=== PATIENT | female | born 1945 | race Caucasian/White ===

== ENCOUNTER → 2019-08-01 09:29 | Outpatient (BNVA) | payer MEDICARE, OTHER, SELFPAY | PROVIDERS: Family Provider Nurse Practitioner Family; PCP Nurse Practitioner Family; Visit Provider Urology | DX: C67.4 Malignant neoplasm of posterior wall of bladder (principal); N30.80 Other cystitis without hematuria | CPT/HCPCS: 81001 ==

== ENCOUNTER 2019-08-16 14:34 | Observation (INO) | payer MEDICARE, OTHER, SELFPAY ==
[2019-08-14 12:03] VITALS: BMI 32.9
--- NOTE | 2019-08-14 12:23 | ANES.PREANES ---
Pre-Anesthetic Assessment Pre-Anesthetic Assessment: Height/Weight: Height 1.6 m Weight 84.368 kg Preop Diagnosis: Recurrent bladder tumor Proposed Procedure: Operation Date: 08/16/19 13:00 Proposed Procedures p Transurethral Resection Bladder Tumor 00389 C67.4(Not Applicable) - Amauri Turcios MD s Cystoscopy(Not Applicable) - Amauri Turcios MD CV/HEM: CV/HEM: HTN Comments: rx'd 20y 2 blocks/FOS angina/SINHA : Comments: TCCA Neuropsych: Neuropsych: ANDERSON Anesthetic Plan: ASA status: II Anesthesia: General PFSH Anesthesia PFSH: Medical History (Updated 08/03/19 @ 15:32 by Henrietta Mcgrath LPN, RT) Cancer of posterior wall of urinary bladder (Acute) Cystitis cystica (Chronic) Surgical History Status post surgical removal and fulguration of bladder neoplasm (Acute) Status post surgical removal of malignant neoplasm of skin (Acute) Social History Smoking and tobacco status: never smoked Alcohol intake: never Marital status: Current occupational status: retired Current gender identity: Female Data Anesthesia Cardiac Studies: No Data to Display
[2019-08-16] VITALS (17 sets, daily range): BP systolic 107–176; BP diastolic 59–84; PULSE 59–92; RESP 14–20; TEMP 36.5–37; O2SAT 86–98
[2019-08-16] MEDS: sodium chloride 0.9% 1,000 ML 30 ML IV (11:30)
--- NOTE | 2019-08-16 13:24 | PM.HPUD ---
H&P update H&P Update: DATE OF SURGERY/PROCEDURE: 08/16/19 DATE H&P PERFORMED: 08/02/19 H&P UPDATE INFORMATION: H&P completed within last 30 days CHANGES TO PREVIOUS DOCUMENTATION: None PREOP DIAGNOSIS: Suspicious bladder lesion and patient with history of TCCA PLANNED PROCEDURE: Operation Date: 08/16/19 13:00 Proposed Procedures p Transurethral Resection Bladder Tumor 18517 C67.4(Not Applicable) - Amauri Turcios MD s Cystoscopy(Not Applicable) - Amauri Turcios MD Conscious Sedation: Patient reassessed prior to sedation, with no change noted: Yes PHYSICAL EXAM: oriented x 3 and clear to auscultation bilaterally (No labored respiration.) OTHER PERTINENT EXAM FINDINGS: No acute distress Full H&P Medications/Allergies: Current Medications: Current Medications Generic Name Dose Route Start Last Admin Trade Name Freq PRN Reason Stop Dose Admin Sodium Chloride 1,000 mls @ 30 ml s/hr 08/16/19 11:15 08/16/19 11:30 Sodium Chloride 0.9% IV 08/17/19 11:14 30 mls/hr .Q24H AZUL Administration Perinent History: Medical/Surgical History: Medical History (Updated 08/01/19 @ 11:08 by Amauri Turcios MD) Cancer of posterior wall of urinary bladder (Acute) Cystitis cystica (Chronic) Family History: Family History Father , OF LUNG CANCER No problems noted. Mother , AT AGE 68-OVARIAN CANCER No problems noted. Sister , at age 59-breast cancer No problems noted. Social History: Social History Smoking and tobacco status: never smoked Alcohol intake: never Marital status: Current occupational status: retired Current gender identity: Female
[2019-08-16] MEDS: levofloxacin-dextrose 5 % 500 MG/100 ML PREMIX 100 MG IV (13:35)
--- NOTE | 2019-08-16 14:26 | P.OP_ITS ---
Operative Report Date of procedure: 08/16/19 Pre-op Diagnosis: Suspicious bladder lesion and patient with history of TCCA Post-op Findings: Papillary recurrence bladder cancer right posterior lateral floor Procedure Done: Cystoscopy, transurethral resection of bladder tumor medium Specimens removed/disposition: None Pathology: Bladder tumor Surgeon: Amauri Turcios Estimated blood loss: Minimal Urine output: Not measured Complications: None Findings: Area of papillary recurrence extending about 3 cm in diameter. Sampled and fulgurated completely. Condition: stable Disposition: PACU Brief History: Nesha is a very pleasant 73-year-old white female with history of bladder cancer. Recently on surveillance cystoscopy was found to have some papillary recurrence lateral to the right ureteral orifices (duplicated system). Admitted for TURBT Procedure: After routine preoperative evaluation examination and obtaining of informed consent she was taken to the operating suite on 08/16/2019 where general anesthesia was administered without difficulty after appropriate timeout was performed, SCDs confirmed to be functioning, preoperative antibiotics administered, and beta-judson protocol confirmed. Prepped and draped in usual sterile fashion in dorsolithotomy position pain careful attention to avoiding pressure points 21 Romanian cystoscope with 30 degree lens was introduced into urethral meatus and advanced into the bladder under videoscopy. Bladder was systematically examined with findings as described above. The only area of involvement was lateral to the right ureteral orifice is duplicated. Cold cup biopsy forceps were then utilized to resect this area and the Bugbee cautery probe was utilized to fulgurated completely for hemostasis and obliterate any residual suspicious mucosa. At the completion of the procedure the area was completely hemostatic. The orifices were uninvolved. Bladder was drained with a 18 Romanian Sanchez catheter efflux was clear. Tolerated the procedure well without complications and awakened in the operating room and returned to recovery in stable condition. PLANS: 1. Maintain observation status overnight with Sanchez catheter in place 2. Consider catheter removal tomorrow and discharge from observation status to home
[2019-08-16] MEDS: fentaNYL 50 mcg/mL INJ 2mL IVP ×2 (14:28→14:33)
[2019-08-16] MEDS: morphine 4 mg/mL SDV 1 mL 2 MG IVP (15:51)
[2019-08-16] MEDS: sodium chloride 0.9% 1,000 ML 50 ML IV (15:52)
[2019-08-16] MEDS: ondansetron 2 mg/ML SDV 2 mL 4 MG IVP (16:13)
[2019-08-16] MEDS: metoprolol tartrate 25 mg Tablet PO (17:16)
[2019-08-17 00:34] VITALS: BP 115/67; PULSE 70; RESP 18; TEMP 36.6; O2SAT 98
[2019-08-17 03:57] VITALS: BP 124/64; PULSE 64; RESP 19; TEMP 36.7; O2SAT 64
--- NOTE | 2019-08-17 04:16 | PC.NURSE ---
pt weight measured@ 207.2
[2019-08-17] MEDS: hydroCHLOROthiazide 25 mg Tablet PO (05:50)
[2019-08-17] MEDS: levoFLOXacin 500 mg Tablet PO (05:50)
[2019-08-17 07:34] VITALS: BP 119/62; PULSE 56; RESP 16; TEMP 36.4; O2SAT 93
--- NOTE | 2019-08-17 07:51 | PM.DCS ---
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 Noninvasive. (2) Cystitis cystica: Status: Chronic Problem details: Long history of recurrent urinary tract infections with cystoscopic proof of cystitis cystica. Managed with long-term suppression via METHENAMINE HIPPURATE Reason for Visit Reason for Visit: Reason For Visit: C67.4 Hospital Course Discharge Summary: She was admitted through outpatient surgery on the day of the procedure which went well. Intraoperative findings included papillary changes along the right posterior lateral floor suspicious for low-grade TCCA but did not appear to be invasive. Postoperatively she did very well. Urine remained clear. Sanchez catheter was removed on postoperative day #1 and she voided spontaneously with clearing urine and bladder scan prove of adequate emptying. Discharged in the afternoon of postoperative day 1 in stable condition. Physical Exam Const: COMMON NORMALS: no apparent distress and oriented x3 Resp: COMMON NORMALS: normal respiratory effort EFFORT & INSPECTION: No tachypneic and No respiratory distress GI: COMMON NORMALS: non-tender Neuro: COMMON NORMALS: oriented x3 and no focal motor deficits Psych: COMMON NORMALS: affect normal and speech normal ATTITUDE: Yes calm and Yes engaged SPEECH: Yes normal speech Urinary Catheter Management^: Sanchez: Cath Placed During This Visit: no Discharge Data Data Completed and Pending: Pending at discharge Category Date Time Status Pathology: Surgic al [PTH] Routine Pth 08/16/19 14:21 Ordered Vitals: Last Vital Signs Temp 97.5 F L 08/17/19 07:34 Pulse 56 L 08/17/19 07:34 Resp 16 08/17/19 07:34 BP 119/62 08/17/19 07:34 Pulse Ox 93 08/17/19 07:34 Discharge Plan Discharge Patient Disposition: Home, Self-Care Condition: Stable Prescriptions: Continued cholecalciferol (vitamin D3) 1,000 unit capsule 1,000 unit PO BID RF: 0 metoprolol tartrate 25 mg tablet 25 mg PO BID RF: 0 hydrochlorothiazide 25 mg tablet 25 mg PO QAM RF: 0 methenamine hippurate 1 gram tablet 1 gm PO BID RF: 0 garlic [garlic oil] 1,000 mg capsule 1,000 mg PO DAILY RF: 0 febuxostat [Uloric] 40 mg tablet 40 mg PO DAILY RF: 0 atorvastatin 20 mg tablet 20 mg PO DAILY RF: 0 ascorbic acid (vitamin C) 500 mg tablet extended release 500 mg PO DAILY RF: 0 magnesium 250 mg tablet 400 mg PO DAILY RF: 0 quinapril 20 mg tablet 20 mg PO DAILY RF: 0 Held omega-3 fatty acids [Fish Oil Concentrate] 1,000 mg capsule 1,000 mg PO TID RF: 0 Hold Instructions: Resume on 08/31/19. aspirin [Enteric Coated Aspirin] 81 mg tablet,delayed release (DR/EC) 81 mg PO DAILY RF: 0 Hold Instructions: Resume on 08/31/19. No Action acetaminophen [Tylenol Extra Strength] 500 mg tablet 500 mg PO Q4H PRN (Reason: pain) RF: 0 Discharge Orders: Discharge Order (Routine); Ordered 08/17/19 Ordered By: Amauri Turcios Referrals: Amauri Turcios MD [Physician] - 10/15/19 (1. Call next week for pathology report if she has not heard from me by the end of the week 2. Cystoscopy as part of surveillance program in about 2 months) Discharge Diet: Advance as tolerated Discharge Activity: Limit activity as instructed Activity Restrictions/Additional Instructions: No lifting >10 pounds x 2 weeks Call at the end of next week for pathology report reviewed We will have you back in clinic in about 2 months for repeat cystoscopy as part of long-term surveillance program. Call for any concerns or questions. Discharge Attestations Time Spent in Discharge Care*: less than 30 min Status at Discharge: Cognitive status at discharge: cognitively intact, Behavioral status at discharge: cooperative, Functional status at discharge: independent ambulation Overall status at discharge: patient is back to baseline Quality Metrics Clinical Quality Measures During this hospital stay, did patient experience: None Coding Level of Care Code Acute [employer] for Kevin Hebert Exam Problem Focused Diagnoses Cancer of posterior wall of urinary bladder C67.4 Cystitis cystica N30.80
[2019-08-17 08:20] VITALS: BP 119/62; PULSE 56; RESP 16; TEMP 36.4; O2SAT 93
[2019-08-17] MEDS: metoprolol tartrate 25 mg Tablet PO (09:46)
== END 2019-08-17 12:21 | disposition home or self-care (01) ==
LOC: MEDSURG 14:35
PROVIDERS: Admitting Provider Urology; Family Provider Nurse Practitioner Family; PCP Nurse Practitioner Family; Visit Provider Urology
PROC: 0TBB8ZZ Excision of Bladder, Via Natural or Artificial Opening Endoscopic (ICD-10-PCS; CPT 52235; principal; 2019-08-16 13:00)
PROC: 0TJB8ZZ Inspection of Bladder, Via Natural or Artificial Opening Endoscopic (ICD-10-PCS; CPT 52000; 2019-08-16 13:00)
DX: C67.4 Malignant neoplasm of posterior wall of bladder (principal); Z80.1 Family history of malignant neoplasm of trachea, bronchus and lung; Z79.82 Long term (current) use of aspirin
CPT/HCPCS: 52235; 12345; 88305; 96375; G0378; J1100; J1956; J2001; J2270; J2370; J2405; J2704; J2710; J2765; J3010; J3490; J7030

== ENCOUNTER → 2019-12-19 11:17 | Outpatient (BNVA) | payer MEDICARE, OTHER, SELFPAY | PROVIDERS: Family Provider Nurse Practitioner Family; PCP Nurse Practitioner Family; Visit Provider Nurse Practitioner Family | DX: I10 Essential (primary) hypertension (principal); E55.9 Vitamin D deficiency, unspecified; M10.9 Gout, unspecified; E78.5 Hyperlipidemia, unspecified; J30.89 Other allergic rhinitis | CPT/HCPCS: 80053; 80061; 82306; 84443; 84550; 85025 ==

== ENCOUNTER → 2020-01-09 15:17 | Outpatient (BNVA) | payer MEDICARE, OTHER, SELFPAY | PROVIDERS: Family Provider Nurse Practitioner Family; PCP Nurse Practitioner Family; Visit Provider Nurse Practitioner Family | DX: M79.641 Pain in right hand (principal); S62.620A Displaced fracture of middle phalanx of right index finger, initial encounter for closed fracture; X58.XXXA Exposure to other specified factors, initial encounter | CPT/HCPCS: 73130 ==

== ENCOUNTER → 2020-01-23 10:07 | Outpatient (BNVA) | payer MEDICARE, OTHER, SELFPAY | PROVIDERS: Family Provider Nurse Practitioner Family; PCP Nurse Practitioner Family; Visit Provider Urology | DX: C67.4 Malignant neoplasm of posterior wall of bladder (principal); N30.80 Other cystitis without hematuria | CPT/HCPCS: 81001 ==

== ENCOUNTER → 2020-04-30 09:21 | Outpatient (BNVA) | payer MEDICARE, OTHER, SELFPAY | PROVIDERS: Family Provider Nurse Practitioner Family; PCP Nurse Practitioner Family; Visit Provider Urology | DX: C67.4 Malignant neoplasm of posterior wall of bladder (principal); N30.80 Other cystitis without hematuria | CPT/HCPCS: 81001 ==

== ENCOUNTER → 2020-05-19 10:34 | Outpatient (BNVA) | payer MEDICARE, OTHER, SELFPAY | PROVIDERS: Family Provider Nurse Practitioner Family; PCP Nurse Practitioner Family; Visit Provider Nurse Practitioner Family | DX: I10 Essential (primary) hypertension (principal); E78.5 Hyperlipidemia, unspecified; M10.9 Gout, unspecified | CPT/HCPCS: 80053; 80061; 84443; 84550; 85025 ==

== ENCOUNTER → 2020-08-06 09:19 | Outpatient (BNVA) | payer MEDICARE, OTHER, SELFPAY | PROVIDERS: Family Provider Nurse Practitioner Family; PCP Nurse Practitioner Family; Visit Provider Urology | DX: N30.80 Other cystitis without hematuria (principal); C67.2 Malignant neoplasm of lateral wall of bladder | CPT/HCPCS: 81003 ==

== ENCOUNTER → 2020-11-05 09:29 | Outpatient (BNVA) | payer MEDICARE, OTHER, SELFPAY | PROVIDERS: Family Provider Nurse Practitioner Family; PCP Nurse Practitioner Family; Visit Provider Urology | DX: C67.2 Malignant neoplasm of lateral wall of bladder (principal) | CPT/HCPCS: 81003 ==

== ENCOUNTER → 2020-11-07 10:30 | Outpatient (BNVA) | payer MEDICARE, OTHER, SELFPAY | PROVIDERS: Family Provider Nurse Practitioner Family; PCP Nurse Practitioner Family; Visit Provider Urology | DX: Z01.812 Encounter for preprocedural laboratory examination (principal); Z20.822 Contact with and (suspected) exposure to COVID-19 | CPT/HCPCS: 87635 ==

== ENCOUNTER 2020-11-13 13:27 | Observation (INO) | payer MEDICARE, OTHER, SELFPAY ==
[2020-11-12 18:21] VITALS: BMI 33.3
[2020-11-13] VITALS (12 sets, daily range): BP systolic 125–159; BP diastolic 57–78; PULSE 63–79; RESP 15–30; TEMP 36.1–36.6; O2SAT 90–100
--- NOTE | 2020-11-13 | SCC_ITS ---
Procedure Done: 1. Cystoscopy right retrograde ureterogram (duplicated system status post right nephrectomy) 2. Right ureteroscopy of duplicated ureters (status post right nephrectomy) 3. Transurethral section of bladder tumor medium 27.8 seconds of fluoroscopic guidance, for a cumulative dose of 8.21 mGy, was provided to Dr. Turcios by the radiology department. C-arm images of the pelvis were saved for the patient's permanent record. [facility]
--- NOTE | 2020-11-13 10:40 | SC_ITS ---
WS: [id number] C-arm fluoroscopy of the pelvis for right retrograde ureterogram, 11/13/2020 Clinical Data: Retrograde ureteropyelogram Comparison: None. Findings: Probably performed a right retrograde pyelogram. SC/C-arm FL for Urology Impression: Right retrograde pyelogram
[2020-11-13] MEDS: sodium chloride 0.9% 1,000 ML 30 ML IV (11:20)
--- NOTE | 2020-11-13 12:21 | ANES.PREANE2 ---
Pre-Anesthetic Assessment Pre-Anesthetic Assessment: Height/Weight: Height 1.6 m Weight 85.275 kg Temp Pulse Resp BP Pulse Ox 97 F L 79 18 155/70 97 11/13/20 10:59 11/13/20 10:59 11/13/20 10:59 11/13/20 10:59 11/13/20 10:59 Preop Diagnosis: Recurrent bladder cancer Proposed Procedure: Operation Date: 11/13/20 12:00 Proposed Procedures p Transurethral Resection Bladder Tumor C67.2 C69.1 [id number](Not Applicable) - Amauri Turcios MD s Cystoscopy(Not Applicable) - Amauri Turcios MD s Retrograde Pyelogram(Right) - Amauri Turcios MD Familial anesthetic complications: none Was Beta Marianne taken within 24 hours: Yes Was Clonidine taken within 24 hours: N/A Last intake: Intake Last Liquid Date 11/12/20 Last Liquid Time 21:00 Last Solid Date 11/12/20 Last Solid Time 17:00 Last Intake: 07:00 Social: Social History: No alcohol and No tobacco Exam: Pre-Anes Outpt Exam: alert, oriented x 3, clear to auscultation bilaterally and regular rate & rhythm Airway: Submandibular: WNL Cervical ROM: WNL MP: 2 Dentition: Full (poor) Pulmonary: Pulmonary: None reported CV/HEM: CV/HEM: Arrythmia (PVC), HTN and Palp : Comments: Right nephrectomy Hepatic: Hepatic: None reported GI: GI: None reported Metabolic: Metabolic: Morbid obesity Musc/skel: Musc/skel: OA/DJD Neuropsych: Neuropsych: None reported Anesthetic Plan: ASA status: 3 Anesthesia: General Risk of > 500 ml blood loss (7ml/kg in children): No Meds/Allergies Current Medications: Current Medications Generic Name Dose Route Start Last Admin Trade Name Freq PRN Reason Stop Dose Admin Sodium Chloride 1,000 mls @ 30 ml s/hr 11/13/20 10:45 11/13/20 11:20 Sodium Chloride 0.9% IV 11/14/20 10:44 30 mls/hr .Q24H AZUL Administration PFSH Anesthesia PFSH: Medical History Cancer of posterior wall of urinary bladder Long history of recurrent TCCA with extended interval between recurrences. Noninvasive. Cystitis cystica Long history of recurrent urinary tract infections with cystoscopic proof of cystitis cystica. 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 Sister , at age 59-breast cancer No problems noted. Social History Smoking and tobacco status: never smoked Alcohol intake: never Marital status: Current occupational status: retired History of recent travel: No Current gender identity: Female Data Anesthesia Cardiac Studies: No Data to Display
--- NOTE | 2020-11-13 12:21 | P.HPUD_ITS ---
Surgery/Procedure H&P Update DATE OF PROCEDURE: November 13, 2020 DATE H&P PERFORMED: 11/05/20 H&P UPDATE INFORMATION: I have reviewed H&P completed within last 30 days, I have examined patient prior to procedure, No changes to prior documentation and H&P is in [facility] [place] on date indicated PREOP DIAGNOSIS: Recurrent bladder cancer PLANNED PROCEDURE: Operation Date: 11/13/20 12:00 Proposed Procedures p Transurethral Resection Bladder Tumor C67.2 C69.1 [id number](Not Applicable) - Amauri Turcios MD s Cystoscopy(Not Applicable) - Amauri Turcios MD s Retrograde Pyelogram(Right) - Amauri Turcios MD
[2020-11-13] MEDS: levofloxacin-dextrose 5 % 500 MG/100 ML PREMIX 100 MG IV (12:28)
[2020-11-13] MEDS: fentaNYL 50 mcg/mL INJ 2mL IVP ×2 (13:35→13:40)
--- NOTE | 2020-11-13 13:35 | P.OP_ITS ---
Operative Report Date of procedure: November 13, 2020 Pre-op Diagnosis: Recurrent bladder cancer Post-op diagnosis: same Procedure Done: 1. Cystoscopy right retrograde ureterogram (duplicated system status post right nephrectomy) 2. Right ureteroscopy of duplicated ureters (status post right nephrectomy) 3. Transurethral section of bladder tumor medium Specimens removed/disposition: Bladder tumor sampling. Right lateral wall, near both ureteral orifices, Pathology: Bladder tumor sampling Surgeon: Tam Anesthesia: General Estimated blood loss: Less than 10 cc Urine output: Not measured Complications: None Findings: Several clusters of papillary changes with some flat mucosal changes as well on the right lateral wall measuring about 2-1/2 cm to 3 cm in size. Involved area near both duplicated ureteral orifices. No evidence of mucosal changes within the ureters. Disposition: PACU Brief History: Ms. 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 On recent surveillance cystoscopy she was found to have some suspicious areas worrisome for possible carcinoma in situ on the right lateral wall and occurring around the blind ending duplicated ureters (status post remote right nephrectomy for infectious condition many years ago) Admitted for TURBT, retrograde, possible ureteroscopy. Procedure: After routine preoperative evaluation examination and obtaining of informed consent she was taken to the operating suite on 11/13/2020 where general anesthesia was administered without difficulty after appropriate timeout was performed, SCDs confirmed to be functioning, preoperative antibiotics administered, beta-judson protocol confirmed. Prepped and draped in usual sterile fashion in dorsolithotomy position paying careful attention to avoiding pressure points. 21 Maltese cystoscope with 30 degree lens was introduced to urethra meatus and advanced into the bladder under videoscopy. The bladder was examined of both 30 and 70 degree lenses. The findings seen in the clinic were confirmed. The mucosa on the right lateral wall near the floor and around the duplicated ureteral orifices showed some changes worrisome for possible carcinoma in situ. No large papillary tumors. All the areas of suspicion were more flat. An 8 Maltese cone-tipped catheter was then intubated into the more superior ureteral orifice for right retrograde ureteropyelogram which showed some narrowing of the ureter but no clear evidence of an intraluminal lesion. The right more distally located ureteral orifice was then intubated as well with contrast injection with the basically the same results. A 7 Maltese offset semirigid ureteroscope was then advanced up each of the ureters to mid ureter area and no suspicious mucosa was identified. Cold cup biopsy forceps were then utilized to sample the multiple areas of flat tumor. Resection with the super loop was then performed but did not do as well because of the thin sections required. After complete sampling the button probe was then utilized on the [employer] bipolar system to fulgurate all areas. At the completion procedure all visible tumor had been addressed with either resection or fulguration. Hemostasis was meticulous. A 20 Maltese three-way Sanchez catheter with 10 cc in the balloon was utilized for bladder drainage and light CBI was initiated. E flux was clear. She tolerated the procedure well without complications and was awakened in the operating room and returned to the cart room in stable condition. PLANS: 1. Admit to observation status to [facility] [place]. 2. Mitomycin tonight for 1 hour 3. Anticipate discharge tomorrow.
[2020-11-13] MEDS: sodium chloride 0.9% 1,000 ML 50 ML IV (14:59)
--- NOTE | 2020-11-13 15:46 | ANE.PACU2 ---
Inpatient post-anesthesia follow up: Airway intact: Yes Vital signs: Temperature 97.4 F Pulse Rate 63 Respiratory Rate 18 Blood Pressure 159/78 Pulse Oximetry 96 Oxygen Delivery Me thod Room Air Oxygen Flow Rate 8 Fraction of Inspir ed Oxygen Hydration adequate: Yes Nausea and vomiting: No Pain level: 2 Mental status: Baseline
[2020-11-13] MEDS: metoprolol tartrate 25 mg Tablet PO (17:00)
--- NOTE | 2020-11-13 18:42 | PC.NURSE ---
SHIFT SUMMARY PATIENT HAS DONE WELL SINCE ARRIVING TO THE FLOOR. PATIENT HAS MINIMAL COMPLAINTS OF PAIN. PATIENT HAD COMPLAINTS OF NAUSEA, BUT THAT HAS PASSED ON ITS OWN. URINE YELLOW. CBI SLOWLY DRIPPING. PATIENT HAD SMALL AMOUNT OF PINK TINGE URINE, BUT HAS NOW CLEARED. GOOD URINE OUTPUT. MYTOMYCIN AT BEDSIDE READY FOR DR. MOSER. NO COMPLAINTS AT THIS TIME.
[2020-11-13] MEDS: morphine 4 mg/mL SDV 1 mL 1 MG IVP (22:57)
[2020-11-14] VITALS: BP 119/65; PULSE 61; RESP 16; TEMP 36.9; O2SAT 93
[2020-11-14 04:00] VITALS: BP 123/58; PULSE 61; RESP 18; TEMP 36.9; O2SAT 92
--- NOTE | 2020-11-14 06:38 | P.DS_ITS ---
Discharge Providers Date of Admission: 11/13/20 13:27 Date of Discharge: November 14, 2020 Attending Provider at Admission: Amauri Turcios MD Attending Provider at Discharge: Amauri Turcios MD Primary Care Provider: TRACY Barahona Diagnoses at Discharge Discharge Diagnosis (1) Cancer of lateral wall of urinary bladder: Status: Acute (2) Cystitis cystica: Status: Chronic Permanent problem details: Long history of recurrent urinary tract infections with cystoscopic proof of cystitis cystica. Managed with long-term suppression via METHENAMINE HIPPURATE (3) Cancer of posterior wall of urinary bladder: Status: Acute Permanent problem details: Long history of recurrent TCCA with extended interval between recurrences. Noninvasive. Reason for Visit Reason for Visit: Neoplasm of lateral wall of bladder Hospital Course Hospital Course Admitted on the day of the procedure which went well. Please see operative note. No postoperative complications. Received MITOMYCIN INTRAVESICAL INSTILLATION on postop day #1 which she held for about an hour and then the medication was drained. Routine chemotherapy protocols observed. After confirmation of adequate emptying and no significant bleeding she was discharged on postoperative day #1 in stable condition with plans for follow-up in about 2 months for cystoscopy but also a phone call next week to review the pathology report. I reviewed with her how to reach me after hours if there is any concerns or questions. Physical Exam Const: COMMON NORMALS: no acute distress, alert and well nourished GENERAL APPEARANCE: well kempt and well developed ORIENTATION/CONSCIOUSNESS: not confused Neck/C-Spine: COMMON NORMALS: full ROM Resp: COMMON NORMALS: normal respiratory effort EFFORT & INSPECTION: No labored and No Actively coughing Neuro: COMMON NORMALS: no focal motor deficits SENSORIUM/ORIENTATION: Yes alert Psych: COMMON NORMALS: mental status grossly normal APPEARANCE: Yes grossly normal and Yes well kempt ATTITUDE: Yes calm and Yes engaged Skin: COMMON NORMALS: no rashes or lesions noted and no jaundice GENERAL SKIN EXAM: no rashes or lesions noted Urinary Catheter Management^: 3-way Urethral CBI: Cath Placed During This Visit: yes Reason for Continuing Indwelling Catheter: Perioperative Use in Selected Surgeries Urinary Catheter Date of Insertion: 11/13/20 Urinary Catheter Time of Insertion: 13:20 Discharge Data Vitals: Last Vital Signs Temp 98.5 F 11/14/20 04:00 Pulse 61 11/14/20 04:00 Resp 18 11/14/20 04:00 BP 123/58 11/14/20 04:00 Pulse Ox 92 11/14/20 04:00 Discharge Plan Discharge Patient Disposition: Home Condition: Stable Prescriptions: Continued cholecalciferol (vitamin D3) 1,000 unit capsule 1,000 unit PO BID RF: 0 omega-3 fatty acids [Fish Oil Concentrate] 1,000 mg capsule 1,000 mg PO TID RF: 0 Hold Instructions: Resume on 08/31/19. acetaminophen [Tylenol Extra Strength] 500 mg tablet 500 mg PO Q4H PRN (Reason: pain) RF: 0 garlic [garlic oil] 1,000 mg capsule 1,000 mg PO DAILY RF: 0 ascorbic acid (vitamin C) 500 mg tablet extended release 1,000 mg PO BID RF: 0 magnesium 250 mg tablet 400 mg PO DAILY RF: 0 atorvastatin 20 mg tablet 20 mg PO DAILY Qty: 90 RF: 1 febuxostat [Uloric] 40 mg tablet 40 mg PO DAILY Qty: 90 RF: 1 metoprolol tartrate 25 mg tablet 25 mg PO BID Qty: 180 RF: 1 quinapril 20 mg tablet 20 mg PO DAILY Qty: 90 RF: 1 methenamine hippurate 1 gram tablet See Rx Instructions .ROUTE .COMPLEX Qty: 60 RF: 12 Allergy Relief (fexofenadine) 180 mg tablet 180 mg PO DAILY PRN (Reason: Allergy Symptoms) RF: 0 hydrochlorothiazide 25 mg tablet 25 mg PO DAILY RF: 0 Held aspirin [Enteric Coated Aspirin] 81 mg tablet,delayed release (DR/EC) 81 mg PO DAILY RF: 0 Hold Instructions: Resume on 11/21/20. Discharge Orders: Discharge Order (Routine); Ordered 11/14/20 Ordered By: Amauri Turcios Referrals: Amauri Turcios MD [Physician] - 2 months (Call next week for pathology report. Cystoscopy in 2 months) Discharge Diet: Usual diet Discharge Activity: Limit activity as instructed Patient Instructions: Opioid Safety Activity Restrictions/Additional Instructions: 1. No lifting >10 pounds x 2 to 3 weeks. Discharge Attestations Time Spent in Discharge Care*: less than 30 min Status at Discharge: Cognitive status at discharge: cognitively intact , Behavioral status at discharge: cooperative , Quality Metrics Clinical Quality Measures During this hospital stay, did patient experience: None Coding Level of Care Code Acute Chg FW DC note Diagnoses Cancer of lateral wall of urinary bladder C67.2 Cystitis cystica N30.80 Cancer of posterior wall of urinary bladder C67.4
[2020-11-14 08:00] VITALS: BP 125/66; PULSE 54; RESP 18; TEMP 36.3; O2SAT 94
[2020-11-14] MEDS: metoprolol tartrate 25 mg Tablet PO (08:40)
[2020-11-14] MEDS: hydroCHLOROthiazide 25 mg Tablet PO (08:41)
[2020-11-14] MEDS: lisinopril 20 mg Tablet PO (08:41)
[2020-11-14] MEDS: atorvastatin 40 mg Tablet 20 MG PO (08:42)
[2020-11-14 11:13] VITALS: BP 120/63; PULSE 66; RESP 18; TEMP 36.9; O2SAT 94
--- NOTE | 2020-11-14 13:59 | PC.CHAP ---
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 [] Patient/Family/Request visit [] Outpatient visit [] Follow-up visit [] Physician referral [] Code/Alert [xx] Routine visit [] Staff referral [] Actively dying [] Patient sleeping [] Family support [] [] Out of room [] Palliative care [] [] Receiving care in room [] Pre-surgical visit [] Trauma [] Long length of stay [] ICU visit [] Other: Relational/Emotional Strength [xx] Patient feels connected with others/family/visitors/staff [] Distress [] Loneliness/isolation [] Abandonment Spirituality of Patient [xx] Person of [place] [xx] Attends Latter-Day of their [place] xx] Believes in Prayer [xx] Reads Bible or Advent materials [] There are Spiritual issues to be addressed [employer]claim [employer]or Interventions [xx] Prayer [xx] Active listening xx[] Non-anxious presence [] Spiritual/emotional support [] Crisis/trauma care [] Spiritual counseling [] Bereavement support [] Provided bereavement packet [xx] Provided Bible/devotional materials [] Provided toy/stuffed animal, coloring book to patient or family member [] Provided Communion [] Anointing/[place] [] Salvation [xx] Completed spiritual assessment [] Other: Impact on Illness or Injury [] Angry [] Fearful [] Anxious [] Often cries [] Exhaustion [] Unable to work [] Unable to attend mosque [] Unable to walk/stand [] Unable to read [] Unable to drive [] Unable to eat/drink [] Unable to sleep [] Unable to be with family [] Patient intubated [] Other: Summary Patient was pleasant with delightful sense of humor. She expects to be discharged later today. Patient accepted [employer] devotional. Time spent with patient 6 minutes
[2020-11-14 15:06] VITALS: BP 129/57; PULSE 66; RESP 18; TEMP 36.7; O2SAT 97
== END 2020-11-14 15:46 | disposition home or self-care (01) ==
LOC: MEDSURG 13:31
PROVIDERS: Admitting Provider Urology; PCP Nurse Practitioner Family; Visit Provider Urology
PROC: 0TBB8ZZ Excision of Bladder, Via Natural or Artificial Opening Endoscopic (ICD-10-PCS; CPT 52235; principal; 2020-11-13 12:00)
PROC: 0TJB8ZZ Inspection of Bladder, Via Natural or Artificial Opening Endoscopic (ICD-10-PCS; CPT 52000; 2020-11-13 12:00)
PROC: (CPT 74420; 2020-11-13 12:00)
DX: C67.8 Malignant neoplasm of overlapping sites of bladder (principal); Z90.5 Acquired absence of kidney; E66.01 Morbid (severe) obesity due to excess calories; Z68.33 Body mass index [BMI] 33.0-33.9, adult; M19.90 Unspecified osteoarthritis, unspecified site; I10 Essential (primary) hypertension; E78.5 Hyperlipidemia, unspecified; Z79.82 Long term (current) use of aspirin
CPT/HCPCS: 52235; 52351; 76000; 88305; G0378; J1100; J1956; J2270; J2405; J2704; J2710; J3010; J3490; J7030

== ENCOUNTER → 2020-12-26 10:03 | Outpatient (BNVA) | payer MEDICARE, OTHER, SELFPAY | PROVIDERS: PCP Nurse Practitioner Family; Visit Provider Nurse Practitioner Family | DX: I10 Essential (primary) hypertension (principal); E55.9 Vitamin D deficiency, unspecified; M1A.9XX0 Chronic gout, unspecified, without tophus (tophi); Z12.39 Encounter for other screening for malignant neoplasm of breast; Z78.0 Asymptomatic menopausal state; M79.641 Pain in right hand; M79.642 Pain in left hand; Z12.31 Encounter for screening mammogram for malignant neoplasm of breast; E78.5 Hyperlipidemia, unspecified | CPT/HCPCS: 80053; 80061; 82306; 84443; 84550; 85025; 85651; 86038; 86140; 86431 ==

== ENCOUNTER → 2021-01-14 10:17 | Outpatient (BNVA) | payer MEDICARE, OTHER, SELFPAY | PROVIDERS: PCP Nurse Practitioner Family; Visit Provider Urology | DX: C67.2 Malignant neoplasm of lateral wall of bladder (principal) | CPT/HCPCS: 81003 ==

== ENCOUNTER 2021-02-02 14:03 | Outpatient (CLI) | payer MEDICARE, OTHER, SELFPAY ==
--- NOTE | 2021-02-02 14:30 | MM_ITS ---
WS: [id number] BILATERAL DIGITAL SCREENING MAMMOGRAPHY WITH CAD CLINICAL INFORMATION: Z12.39 - Encounter for other screening for malignant neop... HISTORY: Screening mammogram. No current complaints. COMPARISON: TECHNIQUE: Bilateral CC and MLO views. FINDINGS: Scattered fibroglandular densities bilaterally. Punctate and lucent centered calcifications. Eggshell calcifications. A few intramammary left nodes left breast. No suspicious focal mass, asymmetry, calc ifications, or architectural distortion. No evidence of malignancy. MM/[place] [id number] IMPRESSION: BI-RADS: 2-Benign FOLLOW UP: 1 Year Follow-up Recommend return to annual screening mammography.
== END 2021-02-02 14:04 | disposition home or self-care (01) ==
LOC: RADSHAW 14:10
PROVIDERS: PCP Nurse Practitioner Family; Visit Provider Nurse Practitioner Family
DX: Z12.31 Encounter for screening mammogram for malignant neoplasm of breast (principal)
CPT/HCPCS: 77067

== ENCOUNTER 2021-02-18 08:06 | Outpatient (CLI) | payer MEDICARE, OTHER, SELFPAY ==
--- NOTE | 2021-02-18 08:31 | XR_ITS ---
WS: [id number] Exam: XR DEXA axial skeleton* [id number] Date/Time of Exam: 02/18/2021 8:31 AM Reason For Exam: Z78.0 - Asymptomatic menopausal state DEXA BONE DENSITOMETRY [employer]Fig The L1-L4 bone mineral density measures 1.785 g/cm2. This corresponds to a T score of 5.0 and Z score of 5.9. Right femoral neck bone mineral density measures 1.2228 g/sq cm. This corresponds to a T score of 1.7 and Z score of 2.8. Mean left radius bone mineral density measures 0.880 g/sq cm. This corresponds to a T score of 0.0 an d Z score of 2.2. XR/XR DEXA axial skeleton* [id number] IMPRESSION: Bone mineral density lies in the normal range. No osteopenia is observed at th is time. Refer to detailed summary.
== END 2021-02-18 08:07 | disposition home or self-care (01) ==
PROVIDERS: PCP Nurse Practitioner Family; Visit Provider Nurse Practitioner Family
DX: Z78.0 Asymptomatic menopausal state (principal)
CPT/HCPCS: 77080

== ENCOUNTER → 2021-02-25 09:53 | Outpatient (BNVA) | payer MEDICARE, OTHER, SELFPAY | PROVIDERS: PCP Nurse Practitioner Family; Visit Provider Internal Medicine Rheumatology | DX: M19.041 Primary osteoarthritis, right hand (principal); M19.042 Primary osteoarthritis, left hand; R76.8 Other specified abnormal immunological findings in serum; Z79.899 Other long term (current) drug therapy; Z11.59 Encounter for screening for other viral diseases; Z11.1 Encounter for screening for respiratory tuberculosis; M10.9 Gout, unspecified; M25.50 Pain in unspecified joint; Z90.5 Acquired absence of kidney; Z96.651 Presence of right artificial knee joint; Z96.652 Presence of left artificial knee joint; Z85.51 Personal history of malignant neoplasm of bladder; Z71.89 Other specified counseling; M19.90 Unspecified osteoarthritis, unspecified site | CPT/HCPCS: 71046; 73130; 73630; 86160; 86162; 86235; 86255; 86376; 86480; 86704; 86803; 87340; 99204 ==

== ENCOUNTER 2021-02-25 12:38 | Outpatient (CLI) | payer MEDICARE, OTHER, SELFPAY ==
--- NOTE | 2021-02-25 12:50 | XR_ITS ---
WS: [id number] Right hand, 3 views, 02/25/2021 Clinical Data: Z79.899 - Other half-way (current) drug therapy Comparison: Right hand, 01/09/2020. Findings: No fractures or dislocations are seen. The soft tissues are unremarkable. There is minima l calcification of the right third MCP joint and first MCP joint. There is calcification in the trira diate cartilage.The soft tissues are normal. XR/XR hand RT min 3V* [id number] Impression: 1. Negative for definite fracture. 2. Minimal calcifications adjacent to the right first and third MCP joints and calcification in the triradiate cartilage
--- NOTE | 2021-02-25 12:50 | XR_ITS ---
WS: [id number] Right foot, 3 views, 02/25/2021 Clinical Data: Z79.899 - Other retirement (current) drug therapy Comparison: None. Findings: No fractures or dislocations are seen. No bone destruction or erosion is noted. The joint spaces and soft tissues are normal. There is a plantar spur and an Achilles spur. There are calcifications which are probably within the Achilles tendon. XR/XR foot RT min 3V* [id number] Impression: Probable Achilles tendon calcifications.
--- NOTE | 2021-02-25 12:50 | XR_ITS ---
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 Findings: No fractures or dislocations are seen. No bone destruction or erosion is noted. The joint spaces and soft tissues are normal. There is an Achilles spur. There are probably calcifications within the Achilles tendon XR/XR foot LT min 3V* [id number] Impression: Probable Achilles tendon calcifications.
--- NOTE | 2021-02-25 12:50 | XR_ITS ---
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 Findings: No fractures or dislocations are seen. The soft tissues are unremarkable. The joint spaces are normal There are calcifications of the left second and third MCP joints, base of the left first metacarpal a nd of the triradiate cartilage. XR/XR hand LT min 3V* [id number] Impression: 1. Probable joint capsule cartilage calcifications of the left second and third MCP joints and base of the left first metacarpal. 2. Triradiate cartilage calcification.
--- NOTE | 2021-02-25 12:50 | XR_ITS ---
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 Findings: No nodules, masses or effusions are seen. The heart is normal. The pulmonary vascularity is not increased. No pneumonia or pneumothorax is seen. The aortic arch and descending aorta show minim al tortuosity. XR/XR chest 2V* [id number] Impression: Atherosclerosis.
[2021-02-25 15:04] LABS: Hepatitis B Core AB, Total Non-Reactive (Nonreactive); Hepatitis B Surface Antigen Non-Reactive (Nonreactive); Hepatitis C Virus Antibody Non-Reactive (Nonreactive)
[2021-02-26 13:18] LABS: CENTROMERE B ANTIBODY <1.0 NEG AI (<1.0 NEG); JO-1 ANTIBODY <1.0 NEG AI (<1.0 NEG); RNP ANTIBODY <1.0 NEG AI (<1.0 NEG); SCL-70 ANTIBODY <1.0 NEG AI (<1.0 NEG); SJOGREN'S ANTIBODY (SS-A) >8.0 POS AI (<1.0 NEG); SM ANTIBODY <1.0 NEG AI (<1.0 NEG); SS-B <1.0 NEG AI (<1.0 NEG)
[2021-02-26 14:47] LABS: COMPLEMENT COMPONENT C3C 149 mg/dL (83-193); COMPLEMENT COMPONENT C4C 33 mg/dL (15-57)
[2021-02-26 16:22] LABS: THYROID PEROXIDASE ANTIBODIES <1 IU/mL (<9)
[2021-02-27 11:56] LABS: ANA SCREEN, IFA POSITIVE (NEGATIVE)
[2021-02-27 15:31] LABS: Quantiferon Mitogen 7.18 IU/mL; Quantiferon Nil 0.26 IU/mL; Quantiferon Plus TB1 0.05 IU/mL; Quantiferon Plus TB2 0.01 IU/mL; Quantiferon TB Gold NEGATIVE (NEGATIVE)
[2021-03-03 01:28] LABS: DNA AB (DS) CRITHIDIA,IFA NEGATIVE (NEGATIVE)
== END 2021-02-25 12:39 | disposition home or self-care (01) ==
PROVIDERS: PCP Nurse Practitioner Family; Visit Provider Internal Medicine Rheumatology
DX: M19.90 Unspecified osteoarthritis, unspecified site (principal); R76.8 Other specified abnormal immunological findings in serum; Z79.899 Other long term (current) drug therapy; Z11.59 Encounter for screening for other viral diseases; Z11.1 Encounter for screening for respiratory tuberculosis
CPT/HCPCS: 71046; 73130; 73630; 86160; 86162; 86235; 86255; 86376; 86480; 86704; 86803; 87340

== ENCOUNTER → 2021-04-14 09:22 | Outpatient (BNVA) | payer MEDICARE, OTHER, SELFPAY | PROVIDERS: PCP Nurse Practitioner Family; Visit Provider Urology | DX: C67.8 Malignant neoplasm of overlapping sites of bladder (principal) | CPT/HCPCS: 81003 ==

== ENCOUNTER → 2021-05-04 13:32 | Outpatient (BNVA) | payer MEDICARE, OTHER, SELFPAY | PROVIDERS: PCP Nurse Practitioner Family; Visit Provider Internal Medicine Rheumatology | DX: M19.041 Primary osteoarthritis, right hand (principal); M19.042 Primary osteoarthritis, left hand; R76.8 Other specified abnormal immunological findings in serum; Z79.899 Other long term (current) drug therapy; M10.9 Gout, unspecified; M35.00 Sjogren syndrome, unspecified; Z96.653 Presence of artificial knee joint, bilateral; Z85.51 Personal history of malignant neoplasm of bladder; Z90.5 Acquired absence of kidney; Z71.89 Other specified counseling | CPT/HCPCS: 99214 ==

== ENCOUNTER → 2021-06-04 09:16 | Outpatient (BNVA) | payer MEDICARE, OTHER, SELFPAY | PROVIDERS: PCP Nurse Practitioner Family; Visit Provider Internal Medicine Rheumatology | DX: M19.90 Unspecified osteoarthritis, unspecified site (principal); Z79.899 Other long term (current) drug therapy | CPT/HCPCS: 80076; 82565; 85025; 86140 ==

== ENCOUNTER → 2021-07-13 08:09 | Outpatient (BNVA) | payer MEDICARE, OTHER, SELFPAY | PROVIDERS: PCP Nurse Practitioner Family; Visit Provider Urology | DX: C67.2 Malignant neoplasm of lateral wall of bladder (principal) | CPT/HCPCS: 81003 ==

== ENCOUNTER → 2021-09-09 10:21 | Outpatient (BNVA) | payer MEDICARE, OTHER, SELFPAY | PROVIDERS: PCP Nurse Practitioner Family; Visit Provider Internal Medicine Rheumatology | DX: M19.041 Primary osteoarthritis, right hand (principal); M19.042 Primary osteoarthritis, left hand; Z79.899 Other long term (current) drug therapy; M35.00 Sjogren syndrome, unspecified; Z96.653 Presence of artificial knee joint, bilateral; Z90.5 Acquired absence of kidney; Z85.51 Personal history of malignant neoplasm of bladder; Z71.89 Other specified counseling | CPT/HCPCS: 99214 ==

== ENCOUNTER → 2021-09-15 09:07 | Outpatient (BNVA) | payer MEDICARE, OTHER, SELFPAY | PROVIDERS: PCP Nurse Practitioner Family; Visit Provider Internal Medicine Rheumatology | DX: M10.9 Gout, unspecified (principal); M19.90 Unspecified osteoarthritis, unspecified site; Z79.899 Other long term (current) drug therapy; E78.5 Hyperlipidemia, unspecified; I10 Essential (primary) hypertension | CPT/HCPCS: 80053; 80061; 80076; 82565; 84550; 85025; 86140 ==

== ENCOUNTER → 2021-10-13 09:41 | Outpatient (BNVA) | payer MEDICARE, OTHER, SELFPAY | PROVIDERS: PCP Nurse Practitioner Family; Visit Provider Urology | DX: N30.80 Other cystitis without hematuria (principal) | CPT/HCPCS: 81003 ==

== ENCOUNTER → 2022-01-28 11:07 | Outpatient (BNVA) | payer MEDICARE, OTHER, SELFPAY | PROVIDERS: PCP Nurse Practitioner Family; Visit Provider Internal Medicine Rheumatology | DX: M19.041 Primary osteoarthritis, right hand (principal); M19.042 Primary osteoarthritis, left hand; R76.8 Other specified abnormal immunological findings in serum; Z79.899 Other long term (current) drug therapy; M35.00 Sjogren syndrome, unspecified; Z85.51 Personal history of malignant neoplasm of bladder; Z90.5 Acquired absence of kidney; Z96.653 Presence of artificial knee joint, bilateral; Z71.89 Other specified counseling | CPT/HCPCS: 99204 ==

== ENCOUNTER → 2022-01-29 09:33 | Outpatient (BNVA) | payer MEDICARE, OTHER, SELFPAY | PROVIDERS: PCP Nurse Practitioner Family; Visit Provider Internal Medicine Rheumatology | DX: R76.8 Other specified abnormal immunological findings in serum (principal); Z79.899 Other long term (current) drug therapy; M19.90 Unspecified osteoarthritis, unspecified site | CPT/HCPCS: 80076; 82565; 85025; 86140 ==

== ENCOUNTER → 2022-03-04 09:10 | Outpatient (BNVA) | payer MEDICARE, OTHER, SELFPAY | PROVIDERS: PCP Nurse Practitioner Family; Visit Provider Urology | DX: C67.4 Malignant neoplasm of posterior wall of bladder (principal); C67.2 Malignant neoplasm of lateral wall of bladder | CPT/HCPCS: 52000; 81003; 96372; J0696 ==

== ENCOUNTER 2022-03-12 09:00 | Outpatient (CLI) | payer MEDICARE, OTHER, SELFPAY ==
--- NOTE | 2022-03-12 09:18 | MM_ITS ---
WS: [id number] Bilateral diagnostic 3D tomosynthesis digital mammogram, 03/12/2022 Clinical Data: LT BREAST LUMP Comparison: 02/02/2021, 03/26/2015, 03/13/2015, 03/01/2014, 11/10/2012, 12/28/2011. Findings: There is a 1.2 cm nodule in the superior aspect of the left breast. This dense nodule has a irregular well-defined border and was not present on previous mammograms. No calcifications are within this no dule. The breast parenchymal pattern shows fat replacement. There are benign calcifications throughout both breasts. There is a mole marker on the left breast. There are numerous lymph nodes in both axilla. T he right breast is normal. MM/[place] [id number] Impression: 1. 1.2 cm dense nodule in superior aspect of left breast suspicious for carcino ma. 2. Recommend left breast ultrasound in the superior aspect. BIRADS: 4-Suspicious Finding-Biopsy Should Be Considered FOLLOW UP: See Report The CAD packing checker was used.
--- NOTE | 2022-03-12 09:58 | US_ITS ---
WS: [id number] Left breast ultrasound, 03/12/2022 Clinical Data: LT BREAST LUMP Comparison: Mammogram, 03/12/2022 Findings: There is an irregular density at the 11:00 position 5 cm from the nipple. There is blood flow associa tobi with this 0.87 x 1.06 x 1.28 cm nodule. The border is well-defined. US/US breast LT limited* [id number] Impression: 1. Left breast superior nodule suspicious for carcinoma. 2. Recommend biopsy. BIRADS: 4-Suspicious Finding-Biopsy Should Be Considered FOLLOW UP: See Report
== END 2022-03-12 09:01 | disposition home or self-care (01) ==
LOC: RAD 09:01
PROVIDERS: PCP Nurse Practitioner Family; Visit Provider Nurse Practitioner Family
DX: N63.22 Unspecified lump in the left breast, upper inner quadrant (principal)
CPT/HCPCS: 76642; 77062

== ENCOUNTER 2022-04-14 11:48 | Outpatient (CLI) | payer MEDICARE, OTHER, SELFPAY ==
--- NOTE | 2022-04-14 11:53 | US_ITS ---
WS: [id number] ULTRASOUND-GUIDED LEFT BREAST BIOPSY HISTORY: LEFT breast mass at 11:00. COMPARISON: 03/12/2022 Procedure, risks and complications are explained to the patient. Medications are reviewed. Consent is obtained. The mass in the LEFT breast is localized with ultrasound. Mass localizes LEFT breast at 11:00, 5 cm f rom the nipple. Skin is cleansed with ChloraPrep and anesthetized with 1% buffered lidocaine. Small d ermatome is made. Under sterile conditions mass is biopsied with a 14-gauge Achieve needle. Multiple core biopsies are performed. Material placed in formalin and sent to pathology for review. No complic ations encountered. Breast tissue marker (Bard ultrasound enhanced ribbon): Single. Patient left the radiology suite with no complications. Patient is instructed to return to [facility] or [facility] with any concerns. US/[place] [id number] IMPRESSION: 1. Uncomplicated core needle biopsy LEFT breast mass at 11:00. PATHOLOGY: Infiltrating ductal carcinoma. Breast profile is pending. RECOMMENDATION: Follow-up with surgery and oncology.
[2022-04-16 17:21] LABS: Breast Profile ER,PR,HER2,Ki-6 See Report
== END 2022-04-14 11:49 | disposition home or self-care (01) ==
PROVIDERS: PCP Nurse Practitioner Family; Visit Provider Nurse Practitioner Family
DX: C50.212 Malignant neoplasm of upper-inner quadrant of left female breast (principal)
CPT/HCPCS: 19083; 88305; 88361; 88374

== ENCOUNTER → 2022-04-21 13:10 | Outpatient (BNVA) | payer MEDICARE, OTHER, SELFPAY | PROVIDERS: PCP Nurse Practitioner Family; Visit Provider Internal Medicine Cardiovascular Disease | DX: R00.2 Palpitations (principal); I10 Essential (primary) hypertension | CPT/HCPCS: 99213; 99214 ==

== ENCOUNTER → 2022-04-22 08:43 | Outpatient (BNVA) | payer MEDICARE, OTHER, SELFPAY | PROVIDERS: PCP Nurse Practitioner Family; Visit Provider Internal Medicine Rheumatology | DX: M19.90 Unspecified osteoarthritis, unspecified site (principal); Z79.899 Other long term (current) drug therapy; R76.8 Other specified abnormal immunological findings in serum | CPT/HCPCS: 80076; 82565; 85025; 86140 ==